=== PATIENT | female | born 1995 | race Caucasian/White ===

== ENCOUNTER → 2018-04-19 | Outpatient (CLI) | payer OTHER | LOC: LAB 18:27 → LAB SHORT 18:27 | PROVIDERS: Internal Medicine | DX: Z12.4 Encounter for screening for malignant neoplasm of cervix (principal) | CPT/HCPCS: G0145 ==

== ENCOUNTER 2023-11-12 17:58 | Emergency (ER) | payer BC ==
[~2023-11-12] VITALS: Ht 177.8 cm; Wt 108.9 kg
[2023-11-12 18:46] VITALS: BP 192/100
== END 2023-11-12 20:09 | disposition home or self-care (01) ==
LOC: ER 17:58
DX: S91.312A Laceration without foreign body, left foot, initial encounter (principal); W22.8XXA Striking against or struck by other objects, initial encounter
CPT/HCPCS: 12001; 90471; 90714; 90715; 99282-25